=== PATIENT | male | born 1980 ===

== ENCOUNTER 2020-10-01 11:21 | Outpatient (REF) | payer MEDICAID, SELFPAY ==
[2020-10-05 21:55] LABS: SARS-CoV-2 RNA Undetected (Undetected); SARS-CoV-2 Specimen Source Nasal
== END 2020-10-01 11:41 ==
LOC: NCHCN 11:21
PROVIDERS: Visit Provider Internal Medicine
DX: Z20.828 Contact with and (suspected) exposure to other viral communicable diseases (principal)
CPT/HCPCS: U0003

== ENCOUNTER 2021-01-20 10:05 | Outpatient (REF) | payer MEDICAID, SELFPAY ==
[2021-01-21 15:43] LABS: COVID-19 RT-PCR UVMMC Result Negative (Negative)
== END 2021-01-20 10:06 | disposition home or self-care (01) ==
LOC: NCHCN 10:05
PROVIDERS: Visit Provider Internal Medicine
DX: Z20.822 Contact with and (suspected) exposure to COVID-19 (principal)
CPT/HCPCS: U0003